=== PATIENT | male | born 1950 | race African-American/Black ===

== ENCOUNTER → 2017-03-17 | Day surgery (SDC) | payer MEDICARE, MEDICAID ==
[~2017-03-17] MED LIST: AMLO10TA2 PO; CLON0.1T PO; COLC0.6T42 PO; DOXY100C2 PO; GABA600T2 PO; GLIM4TAB PO; HYDROmorphone 2 MG/ML VIAL IV PRN; IV RINGERS,LACTATED 1000ML 1,000 ML IV SCH; LIDOCAINE 1% 1 ML SYRINGE. ID PRN; LOSA1TAB18 PO; METF500T4 PO; MONT10TA9 PO; MORPHINE SULFATE 2 MG/ML DISP.SYRIN. IV PRN; ONDANSETRON PF 4 MG/2 ML VIAL. IV PRN; PREG75CA PO; PROCHLORPERAZINE 10 MG/2 ML VIAL. IV PRN; PROPOFOL 40 ML IV ONE; SILD50TA PO; SITA100T PO; VENL37.57 PO; VENTOLIN HFA18 GM INH; fentaNYL PF VIAL 100 MCG/2 ML VIAL IV PRN
--- NOTE | 2017-03-17 08:25 | PDOC1 ---
HISTORY & PHYSICAL H&P Gavin Perez [id number] 1950 02/06/2017 12:00 PM 09/07 [employer] [facility], [facility] PATIENTS COM[facility] FIRST [address] [place] [address]. [phone] Patient: Gavin Perez Date of : 1950 Date: 02/06/2017 12:00 PM Visit Type: Consult This 66 year old male presents for H/o colorectal polyp. History of Present Illness: 1. H/o colorectal polyp Prior screening: colonoscopy. Risk Factors: h/o colon polyp. Pertinent negatives include abdominal pain, change in bowel habits, change in stool caliber, constipation, decreased appetite, diarrhea, melena, nausea, rectal bleeding, vomiting, weight gain and weight loss. Additional information: No family history of colon cancer, No family history of Crohn's/colitis, No NSAID/ ASA use and Had colon polyp twice 2000 and possibly 2008. INTAKE COMMENTS: Intake Comments: Nurse Note: the pt is here today to schedule a colonoscopy due to a h/o colon polyps. The pt states that he has had 2 colonoscopies done and there were polyps in both, the last one being done about 7 years ago. PROBLEM LIST: Problem Description Onset Date COPD with acute bronchitis 09/28/2015 Type 2 diabetes mellitus well controlled 01/02/2011 Allergic rhinitis 02/23/2012 Acute bacterial bronchitis 08/01/2015 COPD (chronic obstructive pulmonary disease) with acute bronchitis 08/01/2015 Benign essential hypertension 01/02/2011 Hyperlipidemia 01/02/2011 Chronic obstructive lung disease 01/02/2011 Chronic pain 01/02/2011 Tobacco dependence syndrome 01/02/2011 COPD exacerbation 04/23/2016 Metatarsal stress fracture of left foot, initial encounter 08/29/2015 DM w/o complication type II, uncontrolled 07/05/2015 Obesity 09/10/2012 PAST MEDICAL/SURGICAL HISTORY (Detailed) Disease/disorder Onset Date Management Date Comments COPD Diabetes Hyperlipidemia Hypertension Medications (Active): Started Medication Directions Instruction Stopped 09/22/2014 albuterol sulfate HFA 90 mcg/actuation aerosol inhaler inhale 2 puff by INHALATION route every 4 hours as needed 09/10/2016 Amaryl 4 mg tablet take 1 tablet by oral route 2 times every day 12/25/2015 amlodipine 10 mg tablet take 1 tablet by oral route every day 11/17/2014 Aspir-81 81 mg tablet,delayed release take 1 tablet (81MG) by oral route every day 12/25/2015 clonidine HCl 0.1 mg tablet take 1 tablet by oral route 3 times every day 09/10/2016 colchicine 0.6 mg tablet take 1 tablet by ORAL route 2 times every day 08/15/2016 doxycycline hyclate 100 mg tablet take 1 tablet by oral route 2 times every day 10/09/2016 Dulera 200 mcg-5 mcg/actuation HFA aerosol inhaler inhale 2 puff by inhalation route 2 times every day in the morning and evening 02/05/2017 gabapentin 600 mg tablet take 1 tablet (600MG) by oral route 3 times every day 01/06/2017 Januvia 100 mg tablet take 1 tablet by oral route every day 12/25/2015 losartan 100 mg-hydrochlorothiazide 12.5 mg tablet TAKE 1 TABLET BY MOUTH DAILY 11/07/2016 Lyrica 75 mg capsule take 1 capsule by oral route 3 times every day 09/10/2016 metformin 500 mg tablet TAKE TWO (2) TABLETS DAILY WITH MORNING AND EVENING MEALS 02/05/2017 Percocet 10 mg-325 mg tablet take 1 tablet by oral route every 4 hours as needed for pain 10/09/2016 Singulair 10 mg tablet take 1 tablet by oral route every day 08/27/2016 TRUETEST GLUCOSE TEST STRIPS TEST SUGARS DAILY DIRECTED venlafaxine ER 37.5 mg capsule,extended release 24 hr take 1 capsule by oral route every day with food dr gregorio 10/09/2016 Ventolin HFA 90 mcg/actuation aerosol inhaler inhale 2 puff by inhalation route every 4 hours as needed 02/09/2014 Viagra 100 mg tablet take 1 tablet (100MG) by oral route every day as needed approximately 1 hour before sexual activity 05/08/2015 Zofran 8 mg tablet take 1 tablet by oral route every 12 hours Allergies: Ingredient Reaction Medication Name Comment NO KNOWN ALLERGIES REVIEW OF SYSTEMS System Neg/Pos Details Constitutional Negative Chills, fever, malaise, weight gain and weight loss. ENMT Negative Sore throat. Eyes Negative Double vision. Respiratory Negative Dyspnea and wheezing. Cardio Negative Chest pain and irregular heartbeat/palpitations. GI Positive See HPI. GI Negative Abdominal pain, change in bowel habits, change in stool caliber, constipation, decreased appetite, diarrhea, melena, nausea, see HPI, rectal bleeding and vomiting. Negative Dysuria and hematuria. Endocrine Negative Cold intolerance and heat intolerance. Psych Negative Anxiety. Integumentary Negative Hives and rash. MS Negative Joint pain. Marcin/Lymph Negative Easy bleeding and easy bruising. Allergic/Immuno Negative Food allergies. PHYSICAL EXAM: Exam Findings Details Constitutional Normal Well developed. Eyes Normal Conjunctiva - Right: Normal, Left: Normal. Sclera - Right: Normal, Left: Normal. Nasopharynx Normal Lips/teeth/gums - Normal. Neck Exam Normal Inspection - Normal. Thyroid gland - Normal. Respiratory Normal Inspection - Normal. Auscultation - Normal. Cardiovascular Normal Regular rate and rhythm. No murmurs, gallops, or rubs. Vascular Normal Pulses - Carotids: Normal, Femoral: Normal, Dorsalis pedis: Normal. Abdomen Normal Inspection - Normal. Anterior palpation - No guarding. No abdominal tenderness. No hepatic enlargement. No splenic enlargement. No hernia. No ascites. Skin Normal Inspection - Normal. Extremity Normal No edema. Psychiatric * Oriented to time, place, person and situation. Psychiatric Normal Appropriate mood and effect. Assessment/Plan # Detail Type Description 1. Assessment History of colon polyps (Z86.010). Patient Plan schedule colonoscopy at [facility] [place] Plan Orders Further diagnostic evaluations ordered today include(s) Colonoscopy to be performed today. He is to schedule a follow-up visit with Sherry Cedeno MD upon completion of work-up Electronically signed by: Sherry Cedeno MD 02/06/2017 12:35 PM Document generated by: Sherry Cedeno 02/06/2017 12:35 PM Beth Almeida MD, Family Practice; Baldev Logan MD Internal Medicine; Yasmin Jiémnez MD, Internal Medicine; Nora Cedeno MD Internal Medicine; Sherry Cedeno MD, Gastroenterology; Anatoliy Bauman MD, Rheumatology, S. Dominik Suazo, Physical Medicine/Rehab Cindy Santana APRN ------ 03/17/17 Patient seen and examined. No change in H&P. SHERRY CEDENO MD Mar 17, 2017 08:25
[2017-03-17 10:04] VITALS: BP 159/89
--- NOTE | 2017-03-18 10:57 | PATHOLOGY ---
PATHOLOGY REPORT * * * * * * * * FINAL DIAGNOSIS: Colonic mucosa "rectal polyp biopsy": - Fragments of hyperplastic polyps. - There is no evidence of adenomatous changes, high-grade dysplasia or malignancy. ([facility]; 03/18/2017) REPORT ELECTRONICALLY SIGNED BY: Pipe Campos M.D. DATE/TIME: 03/18/2017 10:56 * * * * * * * * GROSS PATHOLOGY: Received in formalin labeled "Jonna Perez, rectal polyp," are three segments of rodríguez soft tissue each measuring 0.4 cm in maximum dimension. The specimen is submitted entirely in cassette A1. ([facility]; 03/17/17) INITIAL CPT CODE(S): A; 92541 Professional services performed by [facility] [place] [address] Technical services performed by [email or web address] at [address] [place] [address] [address] [address]. SPECIMEN(S) RECEIVED: A.Rectal polyp CLINICAL HISTORY: History of polyps PATIENT: JONNA PEREZ Shun /AGE: 12 1950 (Age: 66) PATIENT #: [id number] ALT CASE #: SPECIMEN COLLECTION DATE: 03/17/2017 SPECIMEN RECEIVED DATE: 03/17/2017 [facility] - [id number] [place] [address] - PHONE: [phone] * * * END OF REPORT * * *
== END | disposition home or self-care (01) ==
LOC: ENDOS 07:35
PROVIDERS: ATTEND Internal Medicine Gastroenterology
DX: Z09 Encounter for follow-up examination after completed treatment for conditions other than malignant neoplasm (principal); Z87.19 Personal history of other diseases of the digestive system; I10 Essential (primary) hypertension; J44.9 Chronic obstructive pulmonary disease, unspecified; E66.9 Obesity, unspecified; M19.90 Unspecified osteoarthritis, unspecified site; E11.9 Type 2 diabetes mellitus without complications; F17.200 Nicotine dependence, unspecified, uncomplicated; F32.9 Major depressive disorder, single episode, unspecified; Z68.44 Body mass index [BMI] 60.0-69.9, adult; Z87.39 Personal history of other diseases of the musculoskeletal system and connective tissue; Z86.39 Personal history of other endocrine, nutritional and metabolic disease; Z72.0 Tobacco use
CPT/HCPCS: 45380; 82962; 88305; J2704

== ENCOUNTER → 2017-05-26 | Outpatient (CLI) | payer MEDICARE, MEDICAID ==
[2017-03-17 10:04] VITALS: BP 159/89
[~2017-05-26] MED LIST changes: -HYDROmorphone 2 MG/ML VIAL IV PRN; -IV RINGERS,LACTATED 1000ML 1,000 ML IV SCH; -LIDOCAINE 1% 1 ML SYRINGE. ID PRN; -MORPHINE SULFATE 2 MG/ML DISP.SYRIN. IV PRN; -ONDANSETRON PF 4 MG/2 ML VIAL. IV PRN; -PROCHLORPERAZINE 10 MG/2 ML VIAL. IV PRN; -PROPOFOL 40 ML IV ONE; -fentaNYL PF VIAL 100 MCG/2 ML VIAL IV PRN
--- NOTE | 2017-05-26 13:49 | RAD ---
Indication right hip pain for 3 months. Axial images through the pelvis were obtained. No IV or gastrointestinal contrast was administered. The visualized soft tissues appear unremarkable. There are some degenerative changes in the visualized lumbar spine. An acute bony finding is not seen. Significant degenerative changes involving either hip is not apparent on this exam. IMPRESSION: No significant finding seen. Some degenerative change in the visualized lower lumbar spine is noted PQRS Compliance Statement: One or more of the following individualized dose reduction techniques were utilized for this examination: 1. Automated exposure control 2. Adjustment of the mA and/or kV according to patient size 3. Use of iterative reconstruction technique
== END | disposition home or self-care (01) ==
LOC: CT 12:23
PROVIDERS: ATTEND Internal Medicine
DX: M47.896 Other spondylosis, lumbar region (principal); M25.551 Pain in right hip
CPT/HCPCS: 72192

== ENCOUNTER 2019-03-16 10:27 | Emergency (ER) | payer MEDICARE, MEDICAID ==
[~2019-03-16] VITALS: Ht 167.6 cm; Wt 79.4 kg
[~2019-03-16 10:27] MED LIST changes: -AMLO10TA2 PO; +AMLO10TA8 PO; -GABA600T2 PO; +GABA600T7 PO; -LOSA1TAB18 PO; +LOSA1TAB25 PO; +METF500T16 PO; -METF500T4 PO; +MONT10TA49 PO; -MONT10TA9 PO
[2019-03-16 10:49] VITALS: BP 185/84
[2019-03-16] MEDS ORDERED: NAPR-695 PO (11:35)
[2019-03-16] MEDS ORDERED: ORPH100T PO (11:35)
--- NOTE | 2019-03-16 11:35 | PHYS DOC ---
Past Medical History Past Medical History: Diabetes-Type II, Hypertension Past Surgical History: Other Additional Past Surgical Histo: SURGERY ON ROTATOR CUFF Alcohol Use: None Drug Use: None Adult General Chief Complaint Chief Complaint: OTHER COMPLAINTS HPI HPI Patient is a 68 year old [f__sex] who presents with [] Review of Systems Review of Systems Constitutional: Denies fever or chills [] Eyes: Denies change in visual acuity, redness, or eye pain [] HENT: Denies nasal congestion or sore throat [] Respiratory: Denies cough or shortness of breath [] Cardiovascular: No additional information not addressed in HPI [] GI: Denies abdominal pain, nausea, vomiting, bloody stools or diarrhea [] : Denies dysuria or hematuria [] Musculoskeletal: Denies back pain or joint pain [] Integument: Denies rash or skin lesions [] Neurologic: Denies headache, focal weakness or sensory changes [] Endocrine: Denies polyuria or polydipsia [] All other systems were reviewed and found to be within normal limits, except as documented in this note. Allergies Allergies Allergies Coded Allergies Type Severity Reaction Last Updated Verified No Known Drug Allergies 03/17/17 No Physical Exam Physical Exam Constitutional: Well developed, well nourished, no acute distress, non-toxic appearance. [] HENT: Normocephalic, atraumatic, bilateral external ears normal, oropharynx moist, no oral exudates, nose normal. [] Eyes: PERRLA, EOMI, conjunctiva normal, no discharge. [] Neck: Normal range of motion, no tenderness, supple, no stridor. [] Cardiovascular:Heart rate regular rhythm, no murmur [] Lungs & Thorax: Bilateral breath sounds clear to auscultation [] Abdomen: Bowel sounds normal, soft, no tenderness, no masses, no pulsatile masses. [] Skin: Warm, dry, no erythema, no rash. [] Back: No tenderness, no CVA tenderness. [] Extremities: No tenderness, no cyanosis, no clubbing, ROM intact, no edema. [] Neurologic: Alert and oriented X 3, normal motor function, normal sensory function, no focal deficits noted. [] Psychologic: Affect normal, judgement normal, mood normal. [] Current Patient Data Vital Signs Vital Signs Date Time Temp Pulse Resp B/P (MAP) Pulse Ox O2 Delivery O2 Flow Rate FiO2 03/16/19 10:49 98.7 66 20 185/84 (117) 97 Room Air 98.7 EKG EKG [] Radiology/Procedures Radiology/Procedures [] Course & Med Decision Making Course & Med Decision Making Pertinent Labs and Imaging studies reviewed. (See chart for details) [] Dragon Disclaimer Dragon Disclaimer This electronic medical record was generated, in whole or in part, using a voice recognition dictation system. Departure Departure Impression: Primary Impression: Hip strain Disposition: HOME, SELF-CARE Condition: STABLE Referrals: MOE MCKOY MD (PCP) Patient Instructions: Muscle Strain, Eqgg-qv-Ouet Scripts Naproxen (NAPROXEN) 375 Mg Tablet 1 TAB PO TID, #20 TAB Prov: CAITLIN MCNEIL DO 03/16/19 Orphenadrine Citrate (ORPHENADRINE CITRATE) 100 Mg Tablet.er 100 MG PO BID PRN for MUSCLE SPASMS, #14 Prov: CAITLIN MCNEIL DO 03/16/19 Problem Qualifiers Primary Impression: Hip strain Encounter type: initial encounter Laterality: left Qualified Codes: S76.012A - Strain of muscle, fascia and tendon of left hip, initial encounter CAITLIN MCNEIL DO Mar 16, 2019 11:35
== END 2019-03-16 11:55 | disposition home or self-care (01) ==
LOC: ER 10:27
DX: S76.012A Strain of muscle, fascia and tendon of left hip, initial encounter (principal); E11.9 Type 2 diabetes mellitus without complications; I10 Essential (primary) hypertension; X50.0XXA Overexertion from strenuous movement or load, initial encounter; Y93.89 Activity, other specified; Y92.89 Other specified places as the place of occurrence of the external cause; Y99.8 Other external cause status
CPT/HCPCS: 99283

== ENCOUNTER → 2019-05-17 | Outpatient (CLI) | payer MEDICARE, MEDICAID ==
[~2019-05-17] MED LIST changes: +NAPR-695 PO; +ORPH100T PO
--- NOTE | 2019-05-17 17:08 | RAD ---
CHEST PA LATERAL History: Pneumonia and COPD Comparison: 11/15/2010 portable chest x-ray exam. Findings: The cardiomediastinal silhouette is normal. Pulmonary vasculature is normal. The lungs are clear. No pleural effusion or pneumothorax is seen. There is no acute bone abnormality. IMPRESSION: No acute cardiopulmonary process. Electronically signed by: Shekhar Rivers MD (05/17/2019 5:05 PM) [facility]
== END | disposition home or self-care (01) ==
LOC: RAD 14:20
PROVIDERS: ATTEND Internal Medicine
DX: J44.0 Chronic obstructive pulmonary disease with (acute) lower respiratory infection (principal); J18.9 Pneumonia, unspecified organism
CPT/HCPCS: 71046

== ENCOUNTER → 2020-11-12 | Outpatient (CLI) | payer MEDICARE, MEDICAID ==
[~2020-11-12] MED LIST changes: +AMLO-187 PO; -AMLO10TA8 PO; -COLC0.6T42 PO; +COLC0.6T45 PO; +PREG-9 PO; -PREG75CA PO
--- NOTE | 2020-11-12 10:56 | RAD ---
MR#: [id number] Date of Study: 11/12/2020 Ordering Physician: SIMONE WITT, Referring Physician: SIMONE WITT, Tech: Percy Castellon MBA, RDMS, RVT, RDCS, RTR APPROVED REPORT Patient Location: OUT-PATIENT Indications Rest Pain:Bilaterally VELOCITY AND DOPPLER WAVEFORM ANALYSIS RIGHT cm/secWaveformSeverity LEFT cm/secWaveform Severity dCFA 169.0BiphasicdCFA 122.0Biphasic Prof Fem Art. 86.0BiphasicProf Fem Art. 98.0Biphasic Fem Art Prox. 78.0BiphasicFem Art Prox. 62.0Biphasic Fem Art Mid. 148.0BiphasicFem Art Mid. 344.0Biphasic Fem Art Dist. 167.0BiphasicFem Art Dist. 125.0Biphasic Pop Art(Fossa) 100.0BiphasicPop Art(AK) 169.0Biphasic SUPERVISOR TWISTING DEPARTMENT Prox. 123.0BiphasicPTA Prox. 120.0Biphasic SUPERVISOR TWISTING DEPARTMENT Dist. 147.0BiphasicPTA Dist. 95.0Monophasic Per Art Mid. 40.0BiphasicPer Art Mid. 113.0Biphasic ASHLY Prox. 82.0BiphasicATA Prox. 73.0Biphasic DPA 22MonophasicDPA 118Monophasic Findings Grayscale images of the bilateral lower extremity arterial vessels demonstrate mild to moderate diffu se atherosclerosis. On the right side there is three-vessel runoff below the knee without any focal critical obstruction noted. On the left side there is likely a greater than 50% stenosis involving the mid SFA. Peak velocities are noted at 344 cm/s. There are monophasic waveforms in the posterior tibial artery below the knee but there is three-vessel runoff. Moderately elevated velocities are noted in the peroneal artery day ggestive of approximately 50% stenosis. Critical Notification Critical Value: No <Conclusion> 1. No significant right lower extremity arterial disease 2. Probable greater than 50% stenosis involving the left mid SFA. 3. Bilateral three-vessel runoff below the knee Signed by : Demetrius Santillan, Electronically Approved : 11/12/2020 10:55:47
--- NOTE | 2020-11-12 16:56 | CARD ---
MR#: [id number] Date of Study: 11/12/2020 Ordering Physician: SIMONE WITT, Referring Physician: SIMONE WITT Tech: Loulou Slaughter [facility] APPROVED REPORT EXAM: Two-dimensional and M-mode echocardiogram with Doppler and color Doppler. Other Information Quality : GoodHR: 64bpm Rhythm : NSR INDICATION Dyspnea RISK FACTORS Hypertension Diabetes Smoking 2D DIMENSIONS RVDd3.1 (2.9-3.5cm)Left Atrium(2D)3.2 (1.6-4.0cm) IVSd1.5 (0.7-1.1cm)Aortic Root(2D)3.5 (2.0-3.7cm) LVDd3.9 (3.9-5.9cm)LVOT Diameter2.2 (1.8-2.4cm) PWd1.5 (0.7-1.1cm)LVDs2.7 (2.5-4.0cm) FS (%) 30.8 %SV38.0 ml LVEF(%)59.0 (>50%) Aortic Valve AoV Peak Francisco.129.3cm/sAoV VTI31.2cm AO Peak GR.6.7mmHgLVOT Peak Francisco.104.2cm/s AO Mean GR.3mmHgAVA (VMAX)3.16cm2 Mitral Valve MV E Egevkwwi35.2cm/sMV DECEL QKYV586nu MV A Pmndxlys84.6cm/sE/A Ratio1.0 Tricuspid Valve TR P. Bygtnruu870lh/sTR Peak Gr.20mmHg LEFT VENTRICLE The left ventricle is normal size. There is mild concentric left ventricular hypertrophy. The left ve ntricular systolic function is normal and the ejection fraction is within normal range. Estimated ej ection fraction 55-60%. There is normal LV segmental wall motion. The left ventricular diastolic func tion and filling is normal for age. RIGHT VENTRICLE The right ventricle is normal size. There is normal right ventricular wall thickness. The right ventr icular systolic function is normal. ATRIA The left atrium size is normal. The right atrium size is normal. The interatrial septum is intact wit h no evidence for an atrial septal defect or patent foramen ovale as noted on 2-D or Doppler imaging. AORTIC VALVE The aortic valve is normal in structure and function. Doppler and Color Flow revealed no significant aortic regurgitation. There is no significant aortic valvular stenosis. MITRAL VALVE The mitral valve is normal in structure and function. There is no evidence of mitral valve prolapse. There is no mitral valve stenosis. Doppler and Color-flow revealed trace mitral regurgitation. TRICUSPID VALVE The tricuspid valve is normal in structure and function. Doppler and Color Flow revealed trace tricus pid regurgitation. Estimated PAP 25 mmHg. There is no tricuspid valve stenosis. PULMONIC VALVE The pulmonary valve is normal in structure and function. Doppler and Color Flow revealed trace pulmon ic valvular regurgitation. GREAT VESSELS The aortic root is normal in size. The ascending aorta is normal in size. The IVC is normal in size a nd collapses >50% with inspiration. PERICARDIAL EFFUSION There is no evidence of significant pericardial effusion. Critical Notification Critical Value: No <Conclusion> The left ventricle is normal size. The left ventricular systolic function is normal and the ejection fraction is within normal range. Estimated ejection fraction 55-60%. There is mild concentric left ventricular hypertrophy. Doppler and Color Flow revealed no significant aortic regurgitation. There is no significant aortic valvular stenosis. Doppler and Color-flow revealed trace mitral regurgitation. Doppler and Color Flow revealed trace tricuspid regurgitation. Estimated PAP 25 mmHg. Signed by : Alireza Noland MD Electronically Approved : 11/12/2020 16:55:49
== END ==
LOC: US 08:33
PROVIDERS: ATTEND Internal Medicine Cardiovascular Disease
DX: I70.203 Unspecified atherosclerosis of native arteries of extremities, bilateral legs (principal); I10 Essential (primary) hypertension
CPT/HCPCS: 93306; 93925

== ENCOUNTER 2021-12-30 06:45 | Outpatient (CLI) | payer MEDICARE, MEDICAID ==
[2021-12-30] VITALS (12 sets, daily range): BP systolic 151–208; BP diastolic 82–112
[~2021-12-30] VITALS: Ht 172.7 cm; Wt 83.1 kg
[~2021-12-30 06:45] MED LIST changes: -DOXY100C2 PO; +DOXY100C3 PO
[2021-12-30] MEDS ORDERED: AMLO5TAB4 PO (07:22)
[2021-12-30] MEDS ORDERED: ASPI325T8 PO (07:22)
[2021-12-30] MEDS ORDERED: MOME13HF IH (07:23)
[2021-12-30 07:29] LABS: HEMOGLOBIN 14.6 g/dL (13.0-17.5); RED BLOOD COUNT 4.78 x10^6/uL (4.30-5.70); RED CELL DISTRIBUTION WIDTH 12.6 % (11.5-14.5); WHITE BLOOD COUNT 10.6 x10^3/uL (4.0-11.0)
[2021-12-30] MEDS ORDERED: LIDOCAINE 1% PF 2 ML VIAL. ONE (07:36)
[2021-12-30 07:39] LABS: CALCIUM 9.4 mg/dL (8.5-10.1); CREATININE 1.1 mg/dL (0.7-1.3); GFR 80.3; POTASSIUM 4.3 mmol/L (3.5-5.1); PROTHROMBIN TIME PATIENT 12.7 SEC (11.7-14.0)
[2021-12-30] MEDS ORDERED: IODIXANOL 320 200 ML in NS 200 ML IART ONE (08:00)
[2021-12-30] MEDS ORDERED: MIDAZOLAM HCL/PF 2 MG/2 ML VIAL. ONE ×3 (08:27→09:36)
[2021-12-30] MEDS ORDERED: fentaNYL PF VIAL 100 MCG/2 ML VIAL ONE ×4 (08:27→10:00)
[2021-12-30] MEDS ORDERED: VERAPAMIL 5 MG/2 ML VIAL. ONE (08:28)
[2021-12-30] MEDS ORDERED: HEPARIN for IV BOLUS 10,000 UNIT/10 ML VIAL. ONE ×2 (08:29→09:20)
[2021-12-30] MEDS ORDERED: NITROGLYCERIN 200 MCG/2 ML SYRINGE FOR CATH/VASC LAB. ONE ×2 (08:29→10:45)
[2021-12-30] MEDS ORDERED: fentaNYL PF VIAL 100 MCG/2 ML VIAL IV ONE (08:45)
[2021-12-30] MEDS ORDERED: LIDOCAINE 1% PF 2 ML VIAL. INJ ONE (08:45)
[2021-12-30] MEDS ORDERED: NITROGLYCERIN 200 MCG/2 ML SYRINGE FOR CATH/VASC LAB. IART ONE ×2 (08:45→09:45)
[2021-12-30] MEDS ORDERED: VERAPAMIL 5 MG/2 ML VIAL. IART ONE (08:45)
[2021-12-30] MEDS ORDERED: HEPARIN for IV BOLUS 10,000 UNIT/10 ML VIAL. IART ONE (08:45)
[2021-12-30] MEDS ORDERED: MIDAZOLAM HCL/PF 2 MG/2 ML VIAL. IV ONE (08:45)
[2021-12-30] MEDS ORDERED: diphenhydrAMINE 50 MG/ML VIAL ONE (08:46)
[2021-12-30] MEDS ORDERED: diphenhydrAMINE 50 MG/ML VIAL IVP ONE (09:00)
[2021-12-30] MEDS ORDERED: LIDOCAINE 1% Multi-Dose 20 ML VIAL. ONE (09:04)
[2021-12-30] MEDS ORDERED: niCARdipine INJ. IV ONE (09:21)
[2021-12-30] MEDS ORDERED: HEPARIN for IV BOLUS 10,000 UNIT/10 ML VIAL. IVP ONE (09:45)
[2021-12-30] MEDS ORDERED: CLOPIDOGREL BISULFATE 75 MG TABLET PO ONE (10:15)
[2021-12-30] MEDS ORDERED: ASPIRIN 325 MG TABLET PO ONE (10:15)
--- NOTE | 2021-12-30 10:18 | PDOC ---
MODERATE SEDATION ASSESSMENT RISKS/ALTERNATIVES Risks/Alternatives Risks and alternatives of this type of sedation and procedure discussed with: RISK/ALTERNATIVES: Patient H & P ON CHART H & P H & P on chart and reviewed for co-morbid conditions and appropriate labs. H&P ON CHART: Yes STATUS PREG STATUS ASSESSED: N/A MEDS/ALLERGIES REVIEWED Meds/Allergies Reviewed Medications and Allergies including time and route of recently administered narcotics and sedatives. MEDS/ALLERGIES REVIEWED: Yes ASA RATING ASA RATING: III AIRWAY ASSESSMENT Airway Assessment Airway patency, oral function limitations, presence of caps, crowns, dentures, partials, and ability to extend neck assessed. AIRWAY ASSESSMENT: Yes MALLAMPATI SCORE MALLAMPATI SCORE: II PRE-SEDATION ASSESSMENT PRE-SEDATION ASSESSMENT: Yes SIMONE WITT MD Dec 30, 2021 10:18
[2021-12-30] MEDS ORDERED: ACETAMINOPHEN 325 MG TABLET. PO PRN (10:30)
[2021-12-30] MEDS ORDERED: IV 1/2 NORMAL SALINE 1,000 ML IV SCH (10:30)
[2021-12-30] MEDS ORDERED: fentaNYL PF VIAL 100 MCG/2 ML VIAL IVP ONE (10:30)
--- NOTE | 2021-12-30 10:43 | CARD ---
MR#: [id number] Date of Study: 12/30/2021 Ordering Physician: SIMONE WITT, Referring Physician: SIMONE WITT Tech: Wendy Chopra RT(R) APPROVED REPORT Patient StatusOUT-PATIENT Manager Investment: Wendy Chopra RT(R) Procedure(s) performed: 1. Aortogram with bilateral lower extremity runoff 2. Successful orbital atherectomy/AIRPORT OPERATIONS SUPERVISOR/stent placement to the left superficial femoral artery MODERATE SEDATION TIME: 108 MINUETS FLUORO TIME: 24.9 MIN DOSE: 53.9 GYCM2 CONTRAST: 129CC VISI INDICATION FOR PROCEDURE The indication(s) include : Peripheral artery disease with claudication, abnormal arterial duplex sca n. CASE TECHNIQUE After explaining the risks, benefits, and alternative options, informed consent was obtained from the patient. IV conscious sedation was used throughout procedure with appropriate monitoring and was per formed in the presence of a registered nurse who was an independent trained observer other than the dez haque performing the procedure. During this case, Fluoroscopy and low osmolar contrast were used f or imaging. Specimen(s) Removed: No Estimated Blood loss: 15 cc's. PROCEDURE NARRATIVE After explaining the risk, benefits and alternative options, informed consent was obtained from patie nt. Patient was brought to the cardiac Clinical Rehabilitation Specialist and his right wrist and right groin were prepped and draped in the usual fashion. Arterial access was obtained in the right radial artery and a 6 Finnish sheath was inserted. 4 Finnish R2 P PV multicurve catheter was then advanced under fluoroscopy taj romero and with the tip positioned in the descending aorta, aortoiliac angiography was performed. The c atheter was then advanced into the left common femoral artery and selective left lower extremity stephen ography was performed. With this catheter then placed in the right common femoral artery, selective right lower extremity angiography was performed. The following findings were noted: FINDINGS 1. No significant stenosis involving the distal descending aorta 2. No significant stenosis involving bilateral common iliac arteries 3. No significant stenosis involving bilateral external iliac arteries 4. No significant stenosis involving bilateral common femoral arteries 5. The left superficial femoral artery showed 30% stenosis in the proximal segment, long 80% stenosi s followed by 100% chronic total occlusion in the midsegment. There is reconstitution of the distal segment via collaterals. The right superficial femoral artery did not show any significant stenosis. 6. The right popliteal artery showed 30% stenosis. The left popliteal artery did not show any signi ficant stenosis. 7. The left anterior tibial artery showed 100% chronic total occlusion proximally. The left peronea l artery showed moderate diffuse disease followed by complete occlusion. The left posterior tibial a rtery was a good caliber vessel with good runoff all the way to the foot. The right anterior middle artery also showed 100% chronic total occlusion proximally. The right tibioperoneal trunk showed 70% stenosis. The right peroneal artery showed moderate diffuse disease followed by complete occlusion. The right posterior tibial artery showed good runoff all the way to the foot without any stenosis INTERVENTION 20 cc of 2% lidocaine was infiltrated into the skin and subcutaneous tissues of the right groin for l ocal anesthesia. Arterial access was obtained in the right common femoral artery and a 6 Finnish 45 c m destination sheath was inserted. This was then advanced over the aortic erich with the help of a 5 Finnish crossover catheter and the tip of the sheath was positioned in the proximal segment of the l eft superficial femoral artery. The long 80% stenosis followed by chronic total occlusion in the lef t SFA was crossed with a 0.035 inch Glidewire with backup support from 4 Finnish angled glide catheter . The wire was then exchanged to a Viper wire. Multiple orbital atherectomy passes were then perfor med within the lesion using diamondback CSI 1.5 orbital atherectomy catheter. The lesion was then di lated with 5.5 x 100 mm [place] balloon. Due to significant recoil, this was then treated succ essfully with a 7.0 x 80 mm Terumo Misago self-expanding stent. This was then postdilated with 5.5 x 100 mm followed by 6.0 x 40 mm [place] balloon. Follow-up angiography showed resolution of th e stenosis with good distal flow. Patient tolerated the procedure well. Hemostasis in the right girish in was achieved using Angio-Seal and the right wrist using TR band. There were no immediate complica tions. Conclusion 1. 100% chronic total occlusion involving the left superficial femoral artery and bilateral below th e knee peripheral artery disease as described above 2. Successful orbital atherectomy/AIRPORT OPERATIONS SUPERVISOR/stent placement to the left superficial femoral artery Recommendations 1. Aspirin 81 mg daily 2. Plavix 75 mg daily 3. Vascular risk factor modification Signed by : Simone Witt, Electronically Approved : 12/30/2021 10:43:11
[2021-12-30] MEDS ORDERED: CLOP75TA PO (10:55)
[2021-12-30] MEDS ORDERED: ACETAMINOPHEN 325 MG TABLET. PO ONE (10:58)
[2021-12-30] MEDS ORDERED: MORPHINE SULFATE 4 MG/ML INJ. ONE (11:15)
--- NOTE | 2021-12-30 11:20 | NUR ---
Pt c\o L thigh pain, attempted to reposition,massage and use Tylenol for relief-unsuccessful. Pt continues to moan and move around in the bed. Dr Rojas notified, orders received. JOHNNA HOWARD Addendum: 12/30/21 at 1200 by JONY YOUNG RN 1128 Morphine 2mg IVP administered. Orders received earlier for elevated BP, will continue to monitor JOHNNA HOWARD Addendum: 12/30/21 at 1201 by JONY YOUNG RN 1200 pt appears more at ease, sleeping quietly. JOHNNA HOWARD
[2021-12-30] MEDS ORDERED: MORPHINE SULFATE 2 MG/ML INJ. IVP ONE (11:30)
[2021-12-30] MEDS ORDERED: ASPI-630 PO (12:23)
[2021-12-30] MEDS ORDERED: LABETALOL 20 MG/4 ML DISP.SYRIN. IVP ONE (12:45)
--- NOTE | 2021-12-30 13:46 | NUR ---
Patient's BP improved. PIV removed. Dressing changed at radial site. No bleeding at groin site. No sign of hematoma. VS stable. Instructions provided on site care, sedation. Patient verbalized understanding. Patient's son present. Driving home.
[2021-12-31] MEDS ORDERED: CLOPIDOGREL BISULFATE 75 MG TABLET PO SCH (08:00)
[2021-12-31] MEDS ORDERED: ASPIRIN ENTERIC COATED 81 MG TABLET.DR. PO SCH (08:00)
== END 2021-12-30 13:45 | disposition home or self-care (01) ==
LOC: CCL 06:45
PROVIDERS: ATTEND Internal Medicine Cardiovascular Disease
DX: I73.9 Peripheral vascular disease, unspecified (principal); I10 Essential (primary) hypertension; E11.9 Type 2 diabetes mellitus without complications; J44.9 Chronic obstructive pulmonary disease, unspecified; G47.30 Sleep apnea, unspecified; E66.9 Obesity, unspecified; M19.90 Unspecified osteoarthritis, unspecified site; F32.9 Major depressive disorder, single episode, unspecified; M10.9 Gout, unspecified; F17.210 Nicotine dependence, cigarettes, uncomplicated; Z79.82 Long term (current) use of aspirin; Z79.84 Long term (current) use of oral hypoglycemic drugs; Z79.899 Other long term (current) drug therapy; Z98.890 Other specified postprocedural states
CPT/HCPCS: 36245; 36415; 37227; 75625; 75716; 80048; 85027; 85610; 99152; 99153; C1769; C1894; G0269; J1200; J1644; J2250; J2270; J3010; J3490; J7030; J7050; Q9967